=== PATIENT | female | born 1935 | race African-American/Black ===

== ENCOUNTER 2022-09-01 09:36 | Observation (INO) | payer MEDICARE, BC ==
[~2022-09-01] VITALS: Ht 154.9 cm; Wt 54.0 kg
[2022-09-01 09:44] VITALS: BP 205/132
[2022-09-01 09:57] VITALS: BP 202/126
[2022-09-01 10:31] LABS: BASO% 0.1 % (0-3); EOS% 0.1 % (0-8); HEMATOCRIT 42.6 % (37.0-47.0); HEMOGLOBIN 13.3 g/dl (12.0-16.0); LYMPH% 17.5 % (15-41); MEAN CELL VOLUME 95.9 fL CALC (80.0-100.0); MEAN CORPUSCULAR HGB CONC 31.2 g/dL CAL (32.0-36.0); MONO% 4.6 % (2-13); NEUT# 6.24 thou/uL (2.00-7.15); NEUT% 77.7 % (42-76); RED BLOOD COUNT 4.44 mill/uL (4.20-5.60)
[2022-09-01 10:45] LABS: ALBUMIN 4.8 g/dL (3.2-5.0); ALKALINE PHOSPHATASE 91 u/l (38-126); ANION GAP 15 (6-22 (CALC)); BUN 16 mg/dL (8-23); BUN/CREATININE RATIO 28 (12-20 (CALC)); CARBON DIOXIDE 25 mmol/l (22-30); CHLORIDE 106 mmol/l (95-108); CREATININE 0.6 mg/dL (0.5-1.0); GFR FOR AFR.AMER. > 60 ML/MIN (>=60 (CALC)); GFR OTHER RACES > 60 ML/MIN (>=60 (CALC)); POTASSIUM 3.1 mmol/l (3.5-5.1); SODIUM 142 mmol/l (137-146); TOTAL PROTEIN 9.5 g/dL (6.3-8.2)
[2022-09-01 10:47] LABS: BILIRUBIN, TOTAL 0.4 mg/dL (0.02-1.3); SGOT/AST 49 u/l (9-36)
[2022-09-01] MEDS ORDERED: NORVASC5 M1 PO (13:29)
[2022-09-01] MEDS ORDERED: KAPSPARGO SPRIN25 MG PO (13:29)
[2022-09-01 14:18] VITALS: BP 158/80
[2022-09-01 19:08] VITALS: BP 144/84
[2022-09-02 00:16] VITALS: BP 156/76
[2022-09-02] MEDS ORDERED: DIAZEPAM2 M1 PO (00:42)
[2022-09-02 04:21] VITALS: BP 119/55
[2022-09-02 06:01] LABS: BASO% 0.2 % (0-3); IMMATURE GRANULOCYTES 0.2 % (0.0-5.0); LYMPH% 22.5 % (15-41); MEAN CELL VOLUME 93.2 fL CALC (80.0-100.0); MEAN CORPUSCULAR HGB 30.2 pG CALC (26.0-32.0); MEAN CORPUSCULAR HGB CONC 32.4 g/dL CAL (32.0-36.0); MONO% 7.7 % (2-13); NEUT# 3.99 thou/uL (2.00-7.15); NEUT% 69.4 % (42-76); RED BLOOD COUNT 3.51 mill/uL (4.20-5.60)
[2022-09-02 06:06] LABS: ALKALINE PHOSPHATASE 57 u/l (38-126); ANION GAP 11 (6-22 (CALC)); BILIRUBIN, TOTAL 0.5 mg/dL (0.02-1.3); BUN 9 mg/dL (8-23); BUN/CREATININE RATIO 17 (12-20 (CALC)); CARBON DIOXIDE 26 mmol/l (22-30); CHLORIDE 105 mmol/l (95-108); CREATININE 0.5 mg/dL (0.5-1.0); GFR FOR AFR.AMER. > 60 ML/MIN (>=60 (CALC)); GFR OTHER RACES > 60 ML/MIN (>=60 (CALC)); POTASSIUM 3.1 mmol/l (3.5-5.1); SGOT/AST 31 u/l (9-36); SODIUM 138 mmol/l (137-146)
[2022-09-02 06:07] LABS: ALBUMIN 3.4 g/dL (3.2-5.0); TOTAL PROTEIN 6.9 g/dL (6.3-8.2)
[2022-09-02 06:48] LABS: HEMATOCRIT 32.7 % (37.0-47.0); HEMOGLOBIN 10.6 g/dl (12.0-16.0)
[2022-09-02 07:16] VITALS: BP 138/73
[2022-09-02 11:09] VITALS: BP 117/57
[2022-09-02 19:05] VITALS: BP 152/83
[2022-09-03 00:04] VITALS: BP 143/75
[2022-09-03 04:43] VITALS: BP 148/87
[2022-09-03 05:52] LABS: BASO% 0.1 % (0-3); HEMATOCRIT 36.1 % (37.0-47.0); HEMOGLOBIN 11.5 g/dl (12.0-16.0); IMMATURE GRANULOCYTES 0.1 % (0.0-5.0); LYMPH% 18.7 % (15-41); MEAN CORPUSCULAR HGB 29.9 pG CALC (26.0-32.0); MEAN CORPUSCULAR HGB CONC 31.9 g/dL CAL (32.0-36.0); MONO% 6.5 % (2-13); NEUT# 5.64 thou/uL (2.00-7.15); NEUT% 74.6 % (42-76); RED BLOOD COUNT 3.84 mill/uL (4.20-5.60); RED CELL DISTRI WIDTH 14.2 % (11.5-15.5)
[2022-09-03 06:27] LABS: ALKALINE PHOSPHATASE 61 u/l (38-126); ANION GAP 13 (6-22 (CALC)); BILIRUBIN, TOTAL 0.7 mg/dL (0.02-1.3); BUN 10 mg/dL (8-23); BUN/CREATININE RATIO 15 (12-20 (CALC)); CARBON DIOXIDE 22 mmol/l (22-30); CHLORIDE 108 mmol/l (95-108); CREATININE 0.7 mg/dL (0.5-1.0); GFR FOR AFR.AMER. > 60 ML/MIN (>=60 (CALC)); GFR OTHER RACES > 60 ML/MIN (>=60 (CALC)); POTASSIUM 3.4 mmol/l (3.5-5.1); SGOT/AST 32 u/l (9-36); SODIUM 140 mmol/l (137-146); TOTAL PROTEIN 7.6 g/dL (6.3-8.2)
[2022-09-03 06:48] VITALS: BP 148/87
[2022-09-03 10:37] VITALS: BP 123/69
[2022-09-03] MEDS ORDERED: AZITHROMYCIN500 MG PO (13:49)
[2022-09-03] MEDS ORDERED: AMOX/K CLAV875 M1 PO (13:49)
[2022-09-03 15:11] VITALS: BP 123/69
== END 2022-09-03 16:34 | disposition home or self-care (01) ==
LOC: ED 09:36 → ED-I 11:40 → ED 12:10 → MS2 12:11
PROVIDERS: Family Medicine; ADMIT Internal Medicine; ATTEND Internal Medicine
DX: J18.9 Pneumonia, unspecified organism (principal); I10 Essential (primary) hypertension; F41.9 Anxiety disorder, unspecified; K21.9 Gastro-esophageal reflux disease without esophagitis; Z90.10 Acquired absence of unspecified breast and nipple; Z92.3 Personal history of irradiation; Z85.3 Personal history of malignant neoplasm of breast; Z90.710 Acquired absence of both cervix and uterus; Z20.822 Contact with and (suspected) exposure to COVID-19

== ENCOUNTER 2022-10-30 09:06 | Inpatient (IN) | payer MEDICARE, BC ==
[~2022-10-30] VITALS: Ht 152.4 cm; Wt 46.4 kg
[2022-10-30] VITALS (9 sets, daily range): BP systolic 99–153; BP diastolic 72–88
[~2022-10-30 09:06] MED LIST: AMOX/K CLAV875 M1 PO; AZITHROMYCIN500 MG PO; DIAZEPAM2 M1 PO; KAPSPARGO SPRIN25 MG PO; NORVASC5 M1 PO
--- NOTE | 2022-10-30 09:10 | NUR ---
PT ARRIVE TO ER VIA POV. PT ASSISTED TO RM 6. PROVIDER NOTIFIED.
--- NOTE | 2022-10-30 10:05 | NUR ---
IV ABX STARTED, PT MEDICATED
[2022-10-30 10:12] LABS: BASO% 0.3 % (0-3); EOS% 0.3 % (0-8); HEMATOCRIT 38.1 % (37.0-47.0); HEMOGLOBIN 11.7 g/dl (12.0-16.0); LYMPH% 33.7 % (15-41); MEAN CELL VOLUME 96.7 fL CALC (80.0-100.0); MEAN CORPUSCULAR HGB 29.7 pG CALC (26.0-32.0); MEAN CORPUSCULAR HGB CONC 30.7 g/dL CAL (32.0-36.0); MONO% 3.5 % (2-13); NEUT# 6.11 thou/uL (2.00-7.15); NEUT% 62.2 % (42-76); RED BLOOD COUNT 3.94 mill/uL (4.20-5.60)
[2022-10-30 10:29] LABS: ALBUMIN 4.3 g/dL (3.2-5.0); ALKALINE PHOSPHATASE 80 u/l (38-126); BILIRUBIN, TOTAL 0.6 mg/dL (0.02-1.3); BUN 10 mg/dL (8-23); BUN/CREATININE RATIO 16 (12-20 (CALC)); CHLORIDE 105 mmol/l (95-108); CREATININE 0.6 mg/dL (0.5-1.0); GFR FOR AFR.AMER. > 60 ML/MIN (>=60 (CALC)); GFR OTHER RACES > 60 ML/MIN (>=60 (CALC)); POTASSIUM 2.9 mmol/l (3.5-5.1); SODIUM 145 mmol/l (137-146); TOTAL PROTEIN 8.2 g/dL (6.3-8.2)
[2022-10-30 10:36] LABS: ANION GAP 13 (6-22 (CALC)); CARBON DIOXIDE 30 mmol/l (22-30); SGOT/AST 68 u/l (9-36)
--- NOTE | 2022-10-30 11:06 | NUR ---
PT NEEDS HAVE BEEN ADDRESSED.
--- NOTE | 2022-10-30 13:00 | NUR ---
REPORT GIVEN TO MARGA YOU. PT TRANSPORTED TO [facility] [place], RM 279 BY BOILER TENDERS SUPERVISOR. PT AMBULATED TO BED, TELE AND O2 2LNC APPLIED.
--- NOTE | 2022-10-30 13:30 | NUR ---
PT ARRIVED TO MED SURG FROM ER TO RM 279 VIA W/C. REPORT GIVEN. PT ALERT AND ORIENTED X 3, PT HAS NO C/O PAIN AT THIS TIME. IV SITE TO LEFT HAND INTACT AND CLEAN. PT AMBULATING TO BATHROOM FOR TOILETING. TELE ON AND ALL LEADS ATTACHED. O2@ 2 LITERS ON VIA NC. PT ORIENTED TO AND CALL LIGHT. CALL LIGHT WITHIN REACH AND ALL SAFETY MEAUSURES IN PLACE.
--- NOTE | 2022-10-30 16:00 | NUR ---
PT BACK TO RM FROM ECHO. NO CHANGE IN STATUS AND PT HAS NO C/O PAIN AT THIS ITME. CALL LIGHT WITHIN REACH AND ALL SAFETY MEASURES IN PLACE.
--- NOTE | 2022-10-30 20:42 | NUR ---
REPORT RECIEVED AT BEGINING OF SHIFT. PT ALERT AND ORIENTED. ON 2 LITERS 02 VIA N/C. BREATHING IS REGULAR, NOT LABORED. LUNG SOUNDS WITH FAINT CRACKLES BILTERAL LOWER LOBES. YOLANDA FLUIDS AND DINNER WELL. DENIES PAIN OR DISCOMFORT. BED ALARM ON FOR SAFETY.
--- NOTE | 2022-10-30 23:35 | NUR ---
PT SLEEPING WELL. O2 ON AT 2 LITERS VIA NC. BREATHING IS NON LABORED. SIDE RAILS UP. BED IS LOCKED. CALL LIGHT IN REACH,
[2022-10-31 04:10] VITALS: BP 133/79
[2022-10-31 05:45] LABS: BASO% 0.4 % (0-3); EOS% 0.7 % (0-8); HEMATOCRIT 33.8 % (37.0-47.0); HEMOGLOBIN 10.5 g/dl (12.0-16.0); LYMPH% 34.9 % (15-41); MEAN CELL VOLUME 96.6 fL CALC (80.0-100.0); MEAN CORPUSCULAR HGB CONC 31.1 g/dL CAL (32.0-36.0); MONO% 5.9 % (2-13); NEUT# 3.13 thou/uL (2.00-7.15); NEUT% 58.1 % (42-76); RED BLOOD COUNT 3.5 mill/uL (4.20-5.60); RED CELL DISTRI WIDTH 14.3 % (11.5-15.5)
[2022-10-31 05:57] LABS: ALBUMIN 3.6 g/dL (3.2-5.0); ALKALINE PHOSPHATASE 57 u/l (38-126); ANION GAP 11 (6-22 (CALC)); BILIRUBIN, TOTAL 0.5 mg/dL (0.02-1.3); BUN 11 mg/dL (8-23); BUN/CREATININE RATIO 18 (12-20 (CALC)); CARBON DIOXIDE 29 mmol/l (22-30); CHLORIDE 106 mmol/l (95-108); CREATININE 0.6 mg/dL (0.5-1.0); GFR FOR AFR.AMER. > 60 ML/MIN (>=60 (CALC)); GFR OTHER RACES > 60 ML/MIN (>=60 (CALC)); MAGNESIUM 2.1 mg/dL (1.6-2.3); POTASSIUM 3.3 mmol/l (3.5-5.1); SGOT/AST 39 u/l (9-36); SODIUM 142 mmol/l (137-146); TOTAL PROTEIN 7.2 g/dL (6.3-8.2)
[2022-10-31 06:18] VITALS: BP 132/76
--- NOTE | 2022-10-31 08:00 | NUR ---
PT SITTING UP IN BEDSIDE CHAIR, ALERT AND OREINTED WITH FAMILY MEMBER AT BEDSIDE. TELE ON WITH ALL LEADS ATTACHED. IV SITE TO LEFT HAND CLEAN AND INTACT. PT AMBULATES WELL TO BATHROOM FOR TOILETING NEEDS. PT HAS CALL LIGHT WITHIN REACH AND ALL SAFETY MEASURES IN PLACE.
[2022-10-31 08:19] VITALS: BP 152/90
--- NOTE | 2022-10-31 11:19 | NUR ---
CONTACTED DR GARCIA'S OFFICE IN REFERENCE TO A PHYSICIAN CONSULT. I SPOKE WITH ОЛЬГА AT 1119 HRS.
--- NOTE | 2022-10-31 12:00 | NUR ---
PT UP IN CHAIR EATING LUNCH. ALERT AND ORIENTED X3. PT HAS NO C/O PAIN. PT HAS NO CHANGE IN STATUS AT THIS TIME. CALL LIGHT WITHIN REACH.
[2022-10-31 15:37] VITALS: BP 150/80
[2022-10-31 15:52] VITALS: BP 126/79
--- NOTE | 2022-10-31 16:00 | NUR ---
PT LAYING IN BED RESTING, AWAKENED TO VOICE. PT IS ORIENTED AND HAS NO C/O PAIN. NO CHANGE IN STATUS AT THIS TIME. CALL LIGHT WITHIN REACH.
--- NOTE | 2022-10-31 19:00 | NUR ---
ESCOBARAR RECEIVED FROM MARGA YOU.
[2022-10-31 19:07] VITALS: BP 128/75
--- NOTE | 2022-10-31 21:00 | NUR ---
PATIENT ALERT AND ORIENTED. VSS. ASSESSMENT COMPLETE. NO DISTRESS NOTED, DENIES PAIN. CALL LIGHT WITHIN REACH. DAUGHTER AT BEDSIDE.
--- NOTE | 2022-11-01 00:53 | NUR ---
RESTING COMFORTABLY, EYES CLOSED. NO DISTRESS NOTED. CALL LIGHT WITHIN REACH. DAUGHTER AT BEDSIDE.
[2022-11-01 04:40] VITALS: BP 138/77
--- NOTE | 2022-11-01 04:46 | NUR ---
PATIENT AWAKE, IN BED WATCHING TV. PATIENT DENIES PAIN AT THIS TIME, NO DISTRESS NOTED. CALL LIGHT WITHIN REACH. DAUGHTER AT BEDSIDE.
[2022-11-01 06:50] VITALS: BP 139/82
[2022-11-01 07:45] LABS: BASO% 0.7 % (0-3); EOS% 1.2 % (0-8); LYMPH% 51.1 % (15-41); MEAN CELL VOLUME 95.7 fL CALC (80.0-100.0); MEAN CORPUSCULAR HGB 29.3 pG CALC (26.0-32.0); MEAN CORPUSCULAR HGB CONC 30.6 g/dL CAL (32.0-36.0); MONO% 8.1 % (2-13); NEUT# 1.64 thou/uL (2.00-7.15); NEUT% 38.9 % (42-76); RED BLOOD COUNT 3.76 mill/uL (4.20-5.60)
--- NOTE | 2022-11-01 08:00 | NUR ---
GOT REPORT FROM SUPERVISOR PHOSPHORUS PROCESSING NURSE. PATIENT ASSESSED. AOX3. NO COMPLAINTS AT THIS TIME. FALL PRECAUTIONS IN PLACE. CALL LIGHT AND BEDSIDE TABLE WITH IN REACH. ADVISED TO CALL IF NEEDING ANYTHING.
[2022-11-01 08:02] LABS: ALBUMIN 3.7 g/dL (3.2-5.0); ALKALINE PHOSPHATASE 53 u/l (38-126); ANION GAP 12 (6-22 (CALC)); BILIRUBIN, TOTAL 0.6 mg/dL (0.02-1.3); BUN 12 mg/dL (8-23); BUN/CREATININE RATIO 20 (12-20 (CALC)); CARBON DIOXIDE 28 mmol/l (22-30); CHLORIDE 104 mmol/l (95-108); CREATININE 0.6 mg/dL (0.5-1.0); GFR FOR AFR.AMER. > 60 ML/MIN (>=60 (CALC)); GFR OTHER RACES > 60 ML/MIN (>=60 (CALC)); POTASSIUM 3.6 mmol/l (3.5-5.1); SGOT/AST 30 u/l (9-36); SODIUM 140 mmol/l (137-146); TOTAL PROTEIN 7.4 g/dL (6.3-8.2)
[2022-11-01 11:11] VITALS: BP 128/90
--- NOTE | 2022-11-01 12:00 | NUR ---
PATIENT IS LAYING IN BED SLEEPING. NO SXS OF DISTRESS. FALL PRECAUTIONS IN PLACE.
[2022-11-01 16:23] VITALS: BP 133/88
--- NOTE | 2022-11-01 16:30 | NUR ---
GAVE REPORT TO NURSE TAKING OVER CARE OF PATIENT. NO FURTHER QUESTIONS OR CONCERNS FROM ON-COMING NURSE.
[2022-11-01 19:27] VITALS: BP 110/50
--- NOTE | 2022-11-01 20:23 | NUR ---
REPORT RECIEVED. PT SITTING UP IN BED, WATCHING TV. APPEARS COMFORTABLE. SIDE RAILS UP. BED IS LOCKED. CALL LIGHT IN REACH.
[2022-11-02 00:28] VITALS: BP 126/63
--- NOTE | 2022-11-02 01:34 | NUR ---
PT SLEEPING WELL. BREATHING APPEARS UNLABORED. TOP BED RAILS UP. BED IS LOCKED. CALL LIGHT IN REACH.
--- NOTE | 2022-11-02 01:58 | NUR ---
PT STATES SHE HAD A SMALL BM. TOOK PRUNE JUICE AND MILK OF MAGNESIA PO.
[2022-11-02 04:51] VITALS: BP 121/67
[2022-11-02 05:51] LABS: BASO% 0.3 % (0-3); EOS% 0.8 % (0-8); HEMATOCRIT 35.1 % (37.0-47.0); HEMOGLOBIN 10.9 g/dl (12.0-16.0); IMMATURE GRANULOCYTES 0.3 % (0.0-5.0); LYMPH% 39.1 % (15-41); MEAN CELL VOLUME 96.2 fL CALC (80.0-100.0); MEAN CORPUSCULAR HGB 29.9 pG CALC (26.0-32.0); MEAN CORPUSCULAR HGB CONC 31.1 g/dL CAL (32.0-36.0); MONO% 11.2 % (2-13); NEUT# 1.82 thou/uL (2.00-7.15); NEUT% 48.3 % (42-76); RED BLOOD COUNT 3.65 mill/uL (4.20-5.60)
[2022-11-02 06:08] LABS: ALBUMIN 3.6 g/dL (3.2-5.0); ALKALINE PHOSPHATASE 53 u/l (38-126); ANION GAP 11 (6-22 (CALC)); BILIRUBIN, TOTAL 0.5 mg/dL (0.02-1.3); BUN 20 mg/dL (8-23); BUN/CREATININE RATIO 29 (12-20 (CALC)); CARBON DIOXIDE 29 mmol/l (22-30); CHLORIDE 103 mmol/l (95-108); CREATININE 0.7 mg/dL (0.5-1.0); GFR FOR AFR.AMER. > 60 ML/MIN (>=60 (CALC)); GFR OTHER RACES > 60 ML/MIN (>=60 (CALC)); POTASSIUM 3.4 mmol/l (3.5-5.1); SGOT/AST 31 u/l (9-36); SODIUM 140 mmol/l (137-146); TOTAL PROTEIN 6.9 g/dL (6.3-8.2)
[2022-11-02 06:54] VITALS: BP 118/67
[2022-11-02 08:08] VITALS: BP 137/73
[2022-11-02 08:15] VITALS: BP 137/73
--- NOTE | 2022-11-02 08:23 | NUR ---
PT RESTING IN HIGH FOWLERS POSITION. AOX3 VS COMPLETED. HEART RHYHTM ON TELE. RESPIRATIONS ON ROOM AIR. IV SITE TO HAND S.L 24G. PT DENIES ADDITIONAL NEEDS AT THE TIME ALL SAFETY PRECAUTIONS IN PLACE WITH CALL LIGHT IN REACH.
[2022-11-02] MEDS ORDERED: LISINOPRIL10 MG PO (11:55)
[2022-11-02] MEDS ORDERED: ADLT ASA LOW81 MG PO (11:55)
[2022-11-02] MEDS ORDERED: LASIX 20 MG TAB20 MG PO (11:55)
--- NOTE | 2022-11-02 12:17 | NUR ---
PT TO BE DC WITH HOME HEALTH.
--- NOTE | 2022-11-02 16:05 | NUR ---
Discharge instructions given. Patient verbalizes understanding of same. Discharged in stable condition via Wheelchair to Home with staff. All belongings sent with pt. iv removed tele removed.
== END 2022-11-02 16:05 | disposition home health service (06) | DRG 291 ==
LOC: ED 09:06 → ED-I 11:00 → ED 12:09 → MS2 12:10
PROVIDERS: Family Medicine; Nurse Practitioner Family; ADMIT Internal Medicine; ATTEND Internal Medicine
DX: I11.0 Hypertensive heart disease with heart failure (principal); I50.21 Acute systolic (congestive) heart failure; R09.02 Hypoxemia; E87.6 Hypokalemia; I34.0 Nonrheumatic mitral (valve) insufficiency; I42.0 Dilated cardiomyopathy; K21.9 Gastro-esophageal reflux disease without esophagitis; I97.2 Postmastectomy lymphedema syndrome; F41.9 Anxiety disorder, unspecified; Y83.6 Removal of other organ (partial) (total) as the cause of abnormal reaction of the patient, or of later complication, without mention of misadventure at the time of the procedure; Z85.3 Personal history of malignant neoplasm of breast; Z90.13 Acquired absence of bilateral breasts and nipples; Z20.822 Contact with and (suspected) exposure to COVID-19
CPT/HCPCS: J1650